=== PATIENT | male | born 1950 | race Caucasian/White ===

== ENCOUNTER 2024-12-12 06:25 | Day surgery (SDC) | payer MEDICARE, OTHER, SELFPAY ==
[2024-12-12] VITALS (23 sets, daily range): BP systolic 73–114; BP diastolic 49–89; BMI 22.3
[2024-12-12] MEDS: LOW STRENGTH ASPIRIN 324 MG PO (07:23)
[2024-12-12] MEDS: NSS 205 ML IV (07:27)
[2024-12-12 07:43] LABS: Hematocrit 43.9 % (39.0-52.0); Hemoglobin 15.5 g/dL (13.0-18.0); Mean Corp Hgb Conc. 35.3 g/dL (33.0-37.0); Mean Corpuscular Hgb 32.8 pg (27.0-31.0); Mean Corpuscular Volume 92.8 fL (80.0-94.0); Mean Platelet Volume 12.9 fL (7.4-10.4); Platelet Count 166 10^3/uL (130-400); Red Blood Cell Count 4.73 10^6/uL (4.70-6.10); Red Cell Dist. Width 13.4 % (11.5-14.5); White Blood Cell Count 4.5 10^3/uL (4.8-10.8)
[2024-12-12] MEDS: NSS 1000 IV (08:42)
--- NOTE | 2024-12-12 11:04 | ITS.CL.CATH ---
[employer] - Catheterization
Cardiac Catheterization
Procedure Report:
LEFT HEART CATHETERIZATION
Date of Procedure: December 12, 2024
Procedures performed:
1: Coronary angiography
2: Left ventricular hemodynamic assessment
Primary Care Physician: Dr. Sandy Donaldson
Primary Health Physicist: Dr. Reji Mckinney
INDICATION: The patient is a 74-year-old man with a past medical history significant for prior CVA and persistent atrial fibrillation which has been more permanent for about a year who is referred for coronary angiography for evaluation of new
cardiomyopathy. He underwent cardioversion in August of this year but rapidly went right back into atrial fibrillation. He was subsequently admitted to [place] in October with decompensated heart failure and was diuresed and started on
goal-directed medical therapy. His ejection fraction is persistently low by repeat echocardiogram performed on November 06 with an EF of 20 to 25% and LV end-diastolic dimension of 6.6 cm. [facility] was held for the procedure today. Creatinine was 1.4
on preprocedure labs. Of note, he recently had a prostate biopsy and is awaiting the results.
ACCESS: The patient was prepped and draped in usual sterile fashion. A 6 Latv[place] sheath was placed in the right common femoral artery using the Seldinger over the wire technique. The right radial artery was very small with ultrasound and was not
able to be accessed. A long sheath was placed in the right common femoral artery to help manage iliofemoral tortuosity with catheter manipulation.
HEMODYNAMIC FINDINGS (mmHg):
LV(s/d,EDP): 105/2, 6
Ao(s/d,m): 105/70, 82
ANGIOGRAPHIC FINDINGS:
Single-plane Left Ventriculography in [facility] Projection: Not done.
Coronary Angiography:
Dominance: Right
Left Main: Short, normal.
Left Anterior Descending: The LAD is a medium caliber vessel that tapers and becomes very small in the mid to distal portion. The LAD gives rise to 1 medium caliber and 2 tiny diagonal branches. All vessels appear widely patent without focal
disease and normal flow.
Left Circumflex: The left circumflex is a medium caliber nondominant vessel that gives rise to a medium caliber high first obtuse marginal branch and terminates in a very large second obtuse marginal branch that bifurcates into 3 major distal
branches. These vessels are angiographically normal with normal flow.
Right Coronary: The right coronary was engaged with a AR-1 6 Latvian diagnostic catheter. The right coronary artery is a large-caliber dominant vessel that gives rise to a large posterior descending artery. These vessels are widely patent and free
of focal disease.
Fluoroscopy Time (min): 9.8
Radiation Dose (mGy): 297
DAP (Gy.cm2): 25
Closure device: 6 [place] Angio-Seal to right common femoral artery
Complications: None.
ASSESSMENT:
1: Normal coronary arteries. This is a nonischemic cardiomyopathy.
2: Low filling pressures.
CONCLUSIONS and RECOMMENDATIONS:
1: Continue medical therapy for severe LV systolic dysfunction.
2: Formal EP evaluation for possible catheter ablation for persistent atrial fibrillation.
3: Groin check tomorrow in the office. If looks okay we will resume Eliquis then.
Kathy Tolentino M.D.
== END 2024-12-12 13:50 | disposition home or self-care (01) ==
LOC: CATH 06:25
PROVIDERS: ATTENDING PHYSICIAN Internal Medicine Interventional Cardiology; FAMILY PHYSICIAN Family Medicine; OTHER PHYSICIAN Internal Medicine Cardiovascular Disease
DX: I42.8 Other cardiomyopathies (principal); I48.19 Other persistent atrial fibrillation; Z86.73 Personal history of transient ischemic attack (TIA), and cerebral infarction without residual deficits; I08.0 Rheumatic disorders of both mitral and aortic valves; I10 Essential (primary) hypertension
CPT/HCPCS: 85027; 93458; C1760; C1769; C1894; Q9967